=== PATIENT | female | born 1945 ===

== ENCOUNTER 2016-12-31 06:06 | Day surgery (SDC) | payer MEDICARE, OTHER ==
[2016-12-25 09:06] VITALS: BMI 33.2
[2016-12-31] MEDS ORDERED: Lidocaine 1% Inj (20ml) ONE (07:35)
[2016-12-31] MEDS ORDERED: Bupivacaine 0.5% Inj(30mL) ONE (07:35)
[2016-12-31] MEDS ORDERED: Propofol 10 mg/ml Inj (20 ML) ONE (08:01)
[2016-12-31] MEDS ORDERED: Midazolam 2 MG/2 ML VIAL ONE (08:01)
[2016-12-31] MEDS ORDERED: Rocuronium 10 mg/ml (5 ml) ONE (08:56)
[2016-12-31] MEDS ORDERED: Succinylcholine 200 mg/10 ml Inj IV ONE (08:56)
[2016-12-31] MEDS ORDERED: HYDROmorphone 0.5 mg/0.5 ml ISec IVP PRN (09:05)
[2016-12-31] MEDS ORDERED: Oxycodone/Acetaminophen 5/325 mg Tab PO PRN (09:09)
--- NOTE | 2016-12-31 09:12 | PCM.SURG1 ---
Surgeon's Initial Post Op Note - Surgeon's Notes Surgeon: Dr. Ye Dean: Dr. Goncalves PGY2, Dr. Schwartz PGY1 Type of Anesthesia: General Endo Pre-Operative Diagnosis: right ganglion cyst Operative Findings: see dictation Post-Operative Diagnosis: same Operation Performed: right ganglion cyst excision Specimen/Specimens Removed: ganglion cyst Estimated Blood Loss: EBL {In ML}: 5 Blood Products Given: N/A Drains Used: No Drains Post-Op Condition: Good Date of Surgery/Procedure: 12/31/16 Time of Surgery/Procedure: 08:00
[2016-12-31] MEDS ORDERED: Sodium Chloride 0.9% 1,000 ML IV SCH (09:15)
[2016-12-31 10:18] VITALS: TEMP 98; O2SAT 97
[2016-12-31 10:51] VITALS: BP 123/56; PULSE 53; RESP 53
--- NOTE | 2017-02-13 13:36 | OP ---
PROCEDURE DATE: 12/31/2016 PREOPERATIVE DIAGNOSIS: Ganglion of the wrist. DESCRIPTION OF PROCEDURE: In the operating room, the patient was identified by name, name of procedure, laterality and my cheyenne. After the successful time-out, the arm was elevated, decompressed with an Esmarch bandage and the tourniquet placed. This was done after the abdomen was prepped and draped using a stockinette with the tourniquet up to 250 and the small incision was made on the wrist over the palpable ganglion. This was dissected by sharp, blunt and cautery dissection down to the base. The base was sutured with Vicryl and the cyst removed. The wound was closed. After the tourniquet was let down, hemostasis was assured with cautery as necessary. Incision was closed with nylon and a light pressure dressing was applied. The patient tolerated the procedure well and taken to recovery room in good condition after the sponge and needle count declared correct. Moncho Ye MD
== END 2016-12-31 11:15 | disposition home or self-care (01) ==
LOC: SDS 06:06
PROVIDERS: ATTEND Surgery
DX: M67.431 Ganglion, right wrist (principal); I10 Essential (primary) hypertension
CPT/HCPCS: 25111; 88304; J0330; J1170; J1885 ×3; J2250; J2405; J2704; J2765; J3010; J7040